=== PATIENT | female | born 1990 | race Caucasian/White ===

== ENCOUNTER 2021-08-21 02:01 | Inpatient (IN) | payer OTHER ==
[2021-08-21] MEDS ORDERED: Ibuprofen 800 MG TAB PO PRN (02:28)
[2021-08-21] MEDS ORDERED: Butorphanol Tartrate 1 MG/ML VIAL SLOW IVP PRN (02:28)
[2021-08-21] MEDS ORDERED: Lidocaine 1% (PF) 30 ML VIAL SC PRN (02:28)
[2021-08-21] MEDS ORDERED: Ondansetron PF 4 MG/2 ML Vial IVP PRN (02:28)
[2021-08-21] MEDS ORDERED: Promethazine HCl 25 MG/ML VIAL IM PRN (02:28)
[2021-08-21] MEDS ORDERED: HYDROcodone/Acetaminophen 5/325 mg Tablet PO PRN ×2 (02:28→05:20)
[2021-08-21] MEDS ORDERED: hydrALAZINE 20 MG/ML VIAL SLOW IVP PRN ×2 (02:28→05:20)
[2021-08-21] MEDS ORDERED: Lactated Ringer's 1,000 ML IV SCH ×2 (02:30)
[2021-08-21] MEDS ORDERED: NS w/ Oxytocin 30 units 500 ML IV SCH (02:30)
[2021-08-21 02:32] VITALS: BMI 34.4
[2021-08-21 02:58] LABS: Mean Corpuscular HGB CONC 33.7 g/dL (32.0-36.0); Mean Corpuscular Hemoglobin 30.2 pg (27.0-33.0); Mean Corpuscular Volume 89.8 fl (81.6-98.3); Mean Platelet Volume 10.4 fl (7.4-10.4); Platelet Count 258 10x3/uL (150-450); RBC Distribution Width 14.2 % (11.5-14.5); White Blood Cell (WBC) Count 11.6 10x3/uL (3.5-10.5)
[2021-08-21 03:54] LABS: Hep B Surf Ag Non-Reactive S/CO (NonReactive); Syphilis Antibody Nonreactive (Nonreactive); Syphilis Antibody Index 0.03 S/CO (<1.00 Non-Reactive)
[2021-08-21] MEDS ORDERED: Oxytocin 10 UNITS/ML VIAL ONE (03:57)
[2021-08-21 03:58] LABS: HBSAg Index 0.23 S/CO (0-0.99)
[2021-08-21] MEDS ORDERED: Bisacodyl 10 MG SUPP PR PRN (05:20)
[2021-08-21] MEDS ORDERED: Benzocaine-Menthol 82.5 ML CAN TOP PRN (05:20)
[2021-08-21] MEDS ORDERED: Milk Of Magnesia 30 ML UDCUP PO PRN (05:20)
[2021-08-21] MEDS ORDERED: Boostrix 0.5 ML (Tdap) VIAL IM ONE (05:20)
[2021-08-21 06:00] LABS: SARS-CoV-2 NAA Rapid Test Not Detected (NotDetected)
[2021-08-21 07:44] LABS: HIV (1/2) Antibody/Antigen Non-Reactive (NonReactive); HIV 1/2 INDEX 0.12 S/CO (<1.00)
[2021-08-21] MEDS: Ferrous Sulfate 325 MG TAB PO SCH ×2 (08:24→17:10)
[2021-08-21] MEDS: Docusate 100 MG CAP PO SCH ×2 (12:27→22:01)
[2021-08-21] MEDS: Ibuprofen 800 MG TAB PO SCH ×3 (14:15→22:01)
[2021-08-22] MEDS ORDERED: Lanolin Ointment 7 GM TUBE TOP PRN (04:45)
[2021-08-22 07:54] VITALS: BP 115/64; TEMP 98.2
[2021-08-22] MEDS: Ibuprofen 800 MG TAB PO SCH (08:02)
[2021-08-22] MEDS: Ferrous Sulfate 325 MG TAB PO SCH (08:02)
[2021-08-22] MEDS: Docusate 100 MG CAP PO SCH (08:02)
== END 2021-08-22 13:30 | disposition home or self-care (01) | DRG 807 ==
LOC: CSHLD/OP 02:01 → CSHLD 02:23 → CSHPP 07:00
PROVIDERS: ADMIT Family Medicine; ATTEND Family Medicine
PROC: 10E0XZZ Delivery of Products of Conception, External Approach (ICD-10-PCS; principal; 2021-08-21)
PROC: 3E033VJ Introduction of Other Hormone into Peripheral Vein, Percutaneous Approach (ICD-10-PCS; 2021-08-21)
DX: O69.1XX0 Labor and delivery complicated by cord around neck, with compression, not applicable or unspecified (principal); Z37.0 Single live birth; Z3A.41 41 weeks gestation of pregnancy; Z20.822 Contact with and (suspected) exposure to COVID-19
CPT/HCPCS: 36415; 85027; 86780; 86850; 86900; 86901; 87340; 87389; 99285; U0002